=== PATIENT | female | born 2000 | race Caucasian/White ===

== ENCOUNTER 2019-10-21 15:19 | Emergency (ER) | payer SELFPAY ==
[~2019-10-21] VITALS: Ht 172.7 cm; Wt 90.9 kg
[2019-10-21 15:40] VITALS: Ht 172.7 cm; Wt 90.9 kg
[2019-10-21] MEDS ORDERED: BACLOFEN20 M1 PO (19:02)
[2019-10-21] MEDS ORDERED: VOLTAREN75 MG PO (19:02)
[2019-10-21 19:44] VITALS: BP 121/48
== END 2019-10-21 19:44 | disposition home or self-care (01) ==
LOC: D.ER 15:19
DX: M54.5 Low back pain (principal); M62.838 Other muscle spasm; T14.8XXA Other injury of unspecified body region, initial encounter; W19.XXXA Unspecified fall, initial encounter; Y93.9 Activity, unspecified; Y92.9 Unspecified place or not applicable